=== PATIENT | female | born 1990 | race American Indian/Alaskan Native ===

== ENCOUNTER 2017-06-19 22:42 | Emergency (ER) | payer OTHER ==
[2017-06-19 23:21] VITALS: BP 141/81
[2017-06-20 00:20] LABS: Basophils % (Auto) 0.5 % (0.0-1.8); Eosinophils % (Auto) 0.7 % (0.0-4.3); Hematocrit 38.4 % (30.3-42.9); Hemoglobin 12.3 gm/dl (10.1-14.3); Mean Corpuscular HGB Conc 32 % (30-34); Mean Corpuscular Volume 78 fl (79-97); Platelet Count 293 K/mm3 (140-440); Red Cell Distribution Width 15.8 % (13.2-15.2); White Blood Count 16.9 K/mm3 (4.5-11.0)
[2017-06-20 00:24] LABS: Mean Corpuscular Hemoglobin 25 pg (28-32)
[2017-06-20 00:25] LABS: Bacteria,Urine 2+ /HPF (Negative); Bilirubin,Urine NEG (Negative); Blood,Urine LG (Negative); Ketones,Urine NEG (Negative); Leukocyte Esterase,Urine LG (Negative); Mucus,Urine 3+ /HPF; Nitrite,Urine NEG (Negative); Urobilinogen,Urine < 2.0 mg/dL (<2.0)
[2017-06-20 00:29] LABS: WBC,Urine > 182.0 /HPF (0.0-6.0)
[2017-06-20 00:38] LABS: Alanine Aminotransferase 18 units/L (7-56); Albumin/Globulin Ratio 1.2 %; Alkaline Phosphatase 46 units/L (35-129); Anion Gap 13 mmol/L; Blood Urea Nitrogen 10 mg/dL (7-17); Calcium 9.2 mg/dL (8.4-10.2); Carbon Dioxide 26 mmol/L (22-30); Chloride 100.8 mmol/L (98-107); Glucose 99 mg/dL (65-100); Lipase 20 units/L (13-60); Potassium 3.5 mmol/L (3.6-5.0); Sodium 136 mmol/L (137-145); Total Protein 7.4 g/dL (6.3-8.2)
[2017-06-20] MEDS ORDERED: MACROBID PO ONE (01:43)
[2017-06-20] MEDS ORDERED: PYRIDIUM PO ONE (01:44)
--- NOTE | 2017-06-20 01:48 | Emergency Department Report ---
HPI - General Chief Complaint: Abdominal Pain Time Seen by Provider: 06/20/17 01:35 - HPI HPI: This is a 26-year-old Afro-Thai female presents to the emergency department from home with complaint of some burning with urination and some intermittent lower abdominal/pelvic cramping or spasm at the end of her urine stream. She also wiped after urination and saw a very small amount of blood. She denies any nausea, vomiting, fever, back pain, vaginal discharge. She is not taken anything for symptoms prior to presentation. She denies any past medical history. No recent travel or sick contacts at home. She has a primary care physician but has not seen them regarding her symptoms. ED Past Medical Hx - Past Medical History Previous Medical History?: No - Surgical History Past Surgical History?: No - Social History Smoking Status: Never Smoker Substance Use Type: None - Medications Home Medications: Home Medications Medication Instructions Recorded Confirmed Last Taken Type Azithromycin [Zithromax Z-KAE] 250 mg PO DAILY #6 tab 10/30/15 Unknown Rx Promethazine Dm [Phenergan Dm 5 ml PO Q6H PRN #120 ml 10/30/15 Unknown Rx 6.25/15 mg 5 ml] predniSONE [Deltasone] 50 mg PO QDAY #5 tab 10/30/15 Unknown Rx Nitrofurantoin Antelope/M-Cryst 100 mg PO BID #14 capsule 06/20/17 Unknown Rx [Macrobid CAP] Phenazopyridine [Pyridium] 100 mg PO TID #6 tablet 06/20/17 Unknown Rx ED Review of Systems ROS: Stated complaint: ABD PAIN Other details as noted in HPI Comment: All other systems reviewed and negative Constitutional: denies: chills, fever Eyes: denies: eye pain, eye discharge, vision change ENT: denies: ear pain, throat pain Respiratory: denies: cough, shortness of breath, wheezing Cardiovascular: denies: chest pain, palpitations Gastrointestinal: denies: nausea, vomiting Genitourinary: dysuria. denies: discharge Musculoskeletal: denies: back pain, joint swelling, arthralgia Skin: denies: rash, lesions Neurological: denies: headache, weakness, paresthesias Physical Exam - Physical Exam Vital Signs: Vital Signs 06/19/17 23:16 Temperature 98.9 F Pulse Rate 75 Respiratory 18 Rate Blood Pressure 141/81 Blood Pressure 141/81 [Right] O2 Sat by Pulse 100 Oximetry Physical Exam: GENERAL: The patient is well-developed well-nourished. HEENT: Normocephalic. Atraumatic. Extraocular motions are intact. Patient has moist mucous membranes. Pupils equal reactive to light bilaterally. NECK: Supple. Trachea is midline. CHEST/LUNGS: Clear to auscultation. There is no respiratory distress noted. HEART/CARDIOVASCULAR: Regular. There is no tachycardia. There is no gallop rub or murmur. ABDOMEN: Abdomen is soft, nontender. Patient has normal bowel sounds. There is no abdominal distention. SKIN: Skin is warm and dry. NEURO: The patient is awake, alert, and oriented. The patient is cooperative. The patient has no focal neurologic deficits. The patient has normal speech. MUSCULOSKELETAL: There is no tenderness or deformity. There is no limitation range of motion. There is no evidence of acute injury. ED Course Vital Signs 06/19/17 23:16 Temperature 98.9 F Pulse Rate 75 Respiratory 18 Rate Blood Pressure 141/81 Blood Pressure 141/81 [Right] O2 Sat by Pulse 100 Oximetry ED Medical Decision Making - Lab Data Result diagrams: 06/19/17 23:35 06/19/17 23:35 - Medical Decision Making 26-year-old female presents with some dysuria and some pelvic cramping or discomfort while urinating. Labs show a significant urinary tract infection. There is some blood in the urine which may be secondary to the urinary tract infection. Vital signs stable including being afebrile. The patient has no current discomfort. She does have increased frequency and urgency. There is no back pain or upper abdominal pain, nausea/vomiting or fever, there is low suspicion for pyelonephritis. Patient is not . She has good follow-up with a primary care physician. She was given a first dose of Macrobid and Pyridium here. - Differential Diagnosis UTI, , pyelonephritis, ovarian cyst Critical Care Time: No Critical care attestation.: If time is entered above; I have spent that time in minutes in the direct care of this critically ill patient, excluding procedure time. ED Disposition Clinical Impression: Urinary tract infection Qualifiers: Urinary tract infection type: acute cystitis Hematuria presence: with hematuria Qualified Code(s): N30.01 - Acute cystitis with hematuria Disposition: TO HOME OR SELFCARE Is pt being admited?: No Condition: Stable Instructions: Urinary Tract Infection in Women (ED) Additional Instructions: Please follow-up with your primary care physician for a repeat urinalysis. Return to the emergency department with any worsening of your symptoms or any acute distress. It should be noted that the medication you were prescribed and/or given for bladder spasm, Pyridium, may make your urine and/or secretions appear orange in color. Prescriptions: Nitrofurantoin Antelope/M-Cryst [Macrobid CAP] 100 mg PO BID #14 capsule Phenazopyridine [Pyridium] 100 mg PO TID #6 tablet Referrals: PCP, Your [Other] - 3-5 Days Time of Disposition: 01:49
== END 2017-06-20 02:22 | disposition home or self-care (01) ==
LOC: ED 22:42
DX: N30.01 Acute cystitis with hematuria (principal)
CPT/HCPCS: 36415; 80053; 81001; 83690; 84703; 85025; 99283

== ENCOUNTER 2017-07-19 12:29 | Emergency (ER) | payer OTHER ==
[2017-07-19] MEDS ORDERED: TORADOL IM ONE (14:29)
[2017-07-19 15:25] VITALS: BP 122/60
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
== END 2017-07-19 16:00 | disposition home or self-care (01) ==
LOC: ED 12:29
DX: S13.4XXA Sprain of ligaments of cervical spine, initial encounter (principal); R51 Headache; F17.210 Nicotine dependence, cigarettes, uncomplicated; V89.2XXA Person injured in unspecified motor-vehicle accident, traffic, initial encounter; Y93.89 Activity, other specified; Y92.89 Other specified places as the place of occurrence of the external cause; Y99.8 Other external cause status
CPT/HCPCS: 96372; 99282; J1885

== ENCOUNTER 2017-09-24 10:47 | Emergency (ER) | payer OTHER ==
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
--- NOTE | 2017-09-24 14:51 | XRay Report ---
RIGHT WRIST, 2 VIEWS: History: wrist pain, injury. Routine views demonstrate the carpal bones to be well mineralized with well preserved bony mineralization and interosseous joint spaces. The carpal and adjacent articular bones have normal contours. The surrounding soft tissues are unremarkable. IMPRESSION: Unremarkable right wrist.
[2017-09-24] MEDS ORDERED: TORADOL IM ONE (15:14)
[2017-09-24 15:55] VITALS: BP 117/76
== END 2017-09-24 15:52 | disposition home or self-care (01) ==
LOC: ED 10:47
DX: S60.211A Contusion of right wrist, initial encounter (principal); F17.200 Nicotine dependence, unspecified, uncomplicated; W22.8XXA Striking against or struck by other objects, initial encounter; Y93.89 Activity, other specified; Y99.8 Other external cause status; Y92.89 Other specified places as the place of occurrence of the external cause
CPT/HCPCS: 73100; 73120; 81025; 96372; 99283; J1885

== ENCOUNTER 2018-12-05 18:28 | Emergency (ER) | payer OTHER ==
[2018-12-05 19:44] LABS: HCG Qualitative,Urine Negative (Negative)
--- NOTE | 2018-12-05 19:44 | Emergency Department Report ---
ED ENT HPI - General Chief complaint: Dental/Oral Stated complaint: HEADACHE/RIGHT JAW PAIN Time Seen by Provider: 12/05/18 19:15 Source: patient Mode of arrival: Ambulatory Limitations: No Limitations - History of Present Illness MD complaint: tooth pain, sore throat Location: tooth # Severity: mild Quality: dull (throbbing) Improves with: none Worsens with: eating Context- Dental: history of dental caries Associated Symptoms: toothache. denies: cough, gum swelling, pain with swallowing, sore throat, tinnitus, discharge from ear, rhinorrhea - Related Data Previous Rx's Medication Instructions Recorded Last Taken Type Cyclobenzaprine [Flexeril] 10 mg PO TID PRN #15 tablet 07/19/17 Unknown Rx Ibuprofen [Motrin 600 MG tab] 600 mg PO Q8H PRN #30 tablet 07/19/17 Unknown Rx Ibuprofen [Motrin 800 MG tab] 800 mg PO Q8HR PRN #15 tablet 09/24/17 Unknown Rx Amoxicillin 500 mg PO QID #40 capsule 12/05/18 Unknown Rx Chlorhexidine Mouthwash [Peridex] 15 ml MM BID #473 bottle 12/05/18 Unknown Rx Ketorolac [Toradol] 10 mg PO Q6H PRN #15 tablet 12/05/18 Unknown Rx Lidocaine Viscous 2% 5 ml MM Q3H PRN #120 udc 12/05/18 Unknown Rx Allergies Allergy/AdvReac Type Severity Reaction Status Date / Time No Known Allergies Allergy Verified 07/19/17 12:34 ED Dental HPI - General Chief complaint: Dental/Oral Stated complaint: HEADACHE/RIGHT JAW PAIN Time Seen by Provider: 12/05/18 19:15 Source: patient Mode of arrival: Ambulatory Limitations: No Limitations - Related Data Previous Rx's Medication Instructions Recorded Last Taken Type Cyclobenzaprine [Flexeril] 10 mg PO TID PRN #15 tablet 07/19/17 Unknown Rx Ibuprofen [Motrin 600 MG tab] 600 mg PO Q8H PRN #30 tablet 07/19/17 Unknown Rx Ibuprofen [Motrin 800 MG tab] 800 mg PO Q8HR PRN #15 tablet 09/24/17 Unknown Rx Amoxicillin 500 mg PO QID #40 capsule 12/05/18 Unknown Rx Chlorhexidine Mouthwash [Peridex] 15 ml MM BID #473 bottle 12/05/18 Unknown Rx Ketorolac [Toradol] 10 mg PO Q6H PRN #15 tablet 12/05/18 Unknown Rx Lidocaine Viscous 2% 5 ml MM Q3H PRN #120 udc 12/05/18 Unknown Rx Allergies Allergy/AdvReac Type Severity Reaction Status Date / Time No Known Allergies Allergy Verified 07/19/17 12:34 ED Review of Systems ROS: Stated complaint: HEADACHE/RIGHT JAW PAIN Other details as noted in HPI Constitutional: denies: chills, fever Eyes: denies: eye pain, eye discharge, vision change ENT: dental pain. denies: ear pain, throat pain Respiratory: denies: cough, shortness of breath, wheezing Cardiovascular: denies: chest pain, palpitations Endocrine: no symptoms reported Gastrointestinal: denies: abdominal pain, nausea, diarrhea Genitourinary: denies: urgency, dysuria, discharge Musculoskeletal: denies: back pain, joint swelling, arthralgia Skin: denies: rash, lesions Neurological: denies: headache, weakness, paresthesias Psychiatric: denies: anxiety, depression Hematological/Lymphatic: denies: easy bleeding, easy bruising ED Past Medical Hx - Past Medical History Previous Medical History?: No - Surgical History Past Surgical History?: No - Social History Smoking Status: Current Every Day Smoker Substance Use Type: None - Medications Home Medications: Home Medications Medication Instructions Recorded Confirmed Last Taken Type Cyclobenzaprine [Flexeril] 10 mg PO TID PRN #15 tablet 07/19/17 Unknown Rx Ibuprofen [Motrin 600 MG tab] 600 mg PO Q8H PRN #30 tablet 07/19/17 Unknown Rx Ibuprofen [Motrin 800 MG tab] 800 mg PO Q8HR PRN #15 tablet 09/24/17 Unknown Rx Amoxicillin 500 mg PO QID #40 capsule 12/05/18 Unknown Rx Chlorhexidine Mouthwash [Peridex] 15 ml MM BID #473 bottle 12/05/18 Unknown Rx Ketorolac [Toradol] 10 mg PO Q6H PRN #15 tablet 12/05/18 Unknown Rx Lidocaine Viscous 2% 5 ml MM Q3H PRN #120 udc 12/05/18 Unknown Rx ED Physical Exam - General Limitations: No Limitations General appearance: alert, in no apparent distress - Head Head exam: Present: atraumatic, normocephalic - Eye Eye exam: Present: normal appearance, PERRL, EOMI Pupils: Present: normal accommodation - ENT ENT exam: Present: normal exam, normal orophraynx, mucous membranes moist - Neck Neck exam: Present: normal inspection, full ROM - Respiratory Respiratory exam: Present: normal lung sounds bilaterally. Absent: respiratory distress, wheezes, rales, rhonchi, chest wall tenderness, accessory muscle use, decreased breath sounds - Cardiovascular Cardiovascular Exam: Present: regular rate, normal rhythm. Absent: systolic murmur, diastolic murmur, rubs, gallop - GI/Abdominal GI/Abdominal exam: Present: soft, normal bowel sounds. Absent: tenderness, guarding, rebound, hypoactive bowel sounds, organomegaly, mass, bruit, pulsatile mass - Extremities Exam Extremities exam: Present: normal inspection, full ROM, normal capillary refill - Back Exam Back exam: Present: normal inspection. Absent: full ROM, tenderness, CVA tenderness (R), CVA tenderness (L), muscle spasm, paraspinal tenderness - Neurological Exam Neurological exam: Present: alert, oriented X3, CN II-XII intact, normal gait, motor sensory deficit. Absent: reflexes normal - Psychiatric Psychiatric exam: Present: normal affect, normal mood. Absent: anxious, flat affect, manic, suicidal ideation - Skin Skin exam: Present: warm, dry, intact, normal color. Absent: rash ED Course Vital Signs 12/05/18 18:31 Temperature 98.4 F Pulse Rate 77 Respiratory 16 Rate Blood Pressure 126/61 O2 Sat by Pulse 98 Oximetry Critical care attestation.: If time is entered above; I have spent that time in minutes in the direct care of this critically ill patient, excluding procedure time. ED Disposition Clinical Impression: Pain, dental Disposition: [id number] TO HOME OR SELFCARE Is pt being admited?: No Does the pt Need Aspirin: No Condition: Stable Instructions: Dental Caries (ED), Toothache (ED) Prescriptions: Amoxicillin 500 mg PO QID #40 capsule Chlorhexidine Mouthwash [Peridex] 15 ml MM BID #473 bottle Ketorolac [Toradol] 10 mg PO Q6H PRN #15 tablet PRN Reason: Pain Lidocaine Viscous 2% 5 ml MM Q3H PRN #120 udc PRN Reason: Pain, Moderate (4-6) Referrals: [facility] [Outside] - 3-5 Days
[2018-12-05 21:36] VITALS: BP 121/88
== END 2018-12-05 20:55 | disposition home or self-care (01) ==
LOC: ED 18:28
DX: K08.89 Other specified disorders of teeth and supporting structures (principal); F17.200 Nicotine dependence, unspecified, uncomplicated
CPT/HCPCS: 81025; 99283